=== PATIENT | male | born 1985 | race African-American/Black ===

== ENCOUNTER 2016-08-18 09:55 | Emergency (ER) | payer MEDICAID, MEDICARE ==
[~2016-08-18] VITALS: Ht 177.8 cm; Wt 75.0 kg
[2016-08-18] MEDS ORDERED: ONDANSETRON HCL 4MG/2ML VIAL IV STA (11:21)
[2016-08-18] MEDS ORDERED: SODIUM CHLORIDE 0.9% 1,000 ML IV ONE (11:21)
[2016-08-18] MEDS ORDERED: MORPHINE SULFATE 4 MG/ML CPJ (NOT FOR IM USE) IV STA (11:21)
[2016-08-18 12:17] LABS: CLARITY URINE CLEAR (CLEAR); COLOR URINE YELLOW (YELLOW); GLUCOSE URINE 2+ (NEGATIVE); KETONES URINE 2+ (NEGATIVE); LEUKOCYTE ESTERASE URINE NEGATIVE (NEGATIVE); NITRITE URINE NEGATIVE (NEGATIVE); OCCULT BLOOD URINE NEGATIVE (NEGATIVE); PH URINE 8.5 (4.5-8.0); PROTEIN URINE NEGATIVE (NEGATIVE); SPECIFIC GRAVITY URINE 1.024 (1.005-1.030)
[2016-08-18 12:24] VITALS: BP 128/64
[2016-08-18 12:26] LABS: INR 1.1; PROTHROMBIN TIME 11.7 sec
[2016-08-18 12:32] LABS: CARBON DIOXIDE 25 mEq/L (21-32); CHLORIDE 105 mEq/L (98-107)
[2016-08-18 12:33] LABS: HEMOGLOBIN. 13.6 g/dL (14.0-18.0); MEAN CORPUSCULAR HEMOGLOBIN 32.7 pg (28.0-32.0); MEAN CORPUSCULAR VOLUME 98.2 fL (80.0-94.0); MEAN PLATELET VOLUME 9.2 fl (7.4-10.4); PLATELET 187 x1000/uL (130-400); RED BLOOD CELL COUNT 4.17 mill/uL (4.7-6.1); RED CELL DISTRIBUTION WIDTH 12.9 % (11.6-14.6)
[2016-08-18 13:21] LABS: PLATELET ESTIMATE NORMAL
[2016-08-18] MEDS ORDERED: POTASSIUM CHLORIDE 20MEQ TABLET SR PO ONE (13:45)
[2016-08-18] MEDS ORDERED: ONDANSETRON 4MG ODT PO ONE (13:45)
== END 2016-08-18 14:23 | disposition home or self-care (01) ==
LOC: ER 10:15
DX: A08.4 Viral intestinal infection, unspecified (principal)
CPT/HCPCS: 36415; 80053; 81001; 83690; 85025; 85610; 96361; 96374; 96375; 99285; J2270; J2405; Q0162; J7030

== ENCOUNTER 2017-10-22 02:54 | Emergency (ER) | payer MEDICAID, MEDICARE ==
[~2017-10-22] VITALS: Ht 175.3 cm; Wt 68.6 kg
[2017-10-22] MEDS ORDERED: KETOROLAC 60MG/2ML VIAL IM STA (07:11)
[2017-10-22] MEDS ORDERED: BACITRACIN ZINC OINT UDPKT TOP ONE (07:15)
[2017-10-22] MEDS ORDERED: MORPHINE SULFATE 10 MG/ML CPJ IM ONE (09:45)
[2017-10-22 09:50] VITALS: BP 126/85
== END 2017-10-22 10:43 | disposition home or self-care (01) ==
LOC: ER 02:54
DX: S62.292A Other fracture of first metacarpal bone, left hand, initial encounter for closed fracture (principal); S90.31XA Contusion of right foot, initial encounter; F12.10 Cannabis abuse, uncomplicated; S49.81XA Other specified injuries of right shoulder and upper arm, initial encounter; Y08.89XA Assault by other specified means, initial encounter; Y93.89 Activity, other specified; Y92.89 Other specified places as the place of occurrence of the external cause; Y99.8 Other external cause status
CPT/HCPCS: 26605; 73030; 73110; 73130; 73630; 96372; 99284; J1885; J2270; Z7610

== ENCOUNTER 2018-11-10 14:24 | Emergency (ER) | payer MEDICAID ==
[~2018-11-10] VITALS: Ht 175.3 cm; Wt 77.0 kg
[2018-11-10 16:29] LABS: BASOPHILS % 0.5 % (0.0-2.0); EOSINOPHILS % 6.9 % (0.0-5.0); HEMATOCRIT. 36.5 % (42.0-52.0); HEMOGLOBIN. 12.5 g/dL (14.0-18.0); MEAN CORPUSCULAR HEMOGLOBIN 34.9 pg (28.0-32.0); MEAN PLATELET VOLUME 7.9 fl (7.4-10.4); MONOCYTES % 8.3 % (2.0-8.0); NEUTROPHILS % 47.3 % (40.0-76.0); PLATELET 167 x1000/uL (130-400); RED BLOOD CELL COUNT 3.58 mill/uL (4.7-6.1); RED CELL DISTRIBUTION WIDTH 13.4 % (11.6-14.6)
[2018-11-10 16:35] LABS: CHLORIDE 111 mEq/L (98-107)
[2018-11-10 16:40] LABS: ETHANOL BLOOD < 10 mg/dL
[2018-11-10 16:57] LABS: CLARITY URINE CLEAR (CLEAR); COLOR URINE YELLOW (YELLOW); KETONES URINE NEGATIVE (NEGATIVE); LEUKOCYTE ESTERASE URINE NEGATIVE (NEGATIVE); NITRITE URINE NEGATIVE (NEGATIVE); OCCULT BLOOD URINE NEGATIVE (NEGATIVE); PROTEIN URINE NEGATIVE (NEGATIVE); SPECIFIC GRAVITY URINE 1.012 (1.005-1.030)
[2018-11-10 17:05] LABS: METHADONE URINE SCREEN NEGATIVE (NEGATIVE); OPIATES URINE SCREEN NEGATIVE (NEGATIVE)
[2018-11-10 17:06] LABS: *AMPHETAMINES SCREEN URINE NEGATIVE (NEGATIVE); *BARBITURATES SCREEN URINE NEGATIVE (NEGATIVE); *BENZODIAZEPINES SCREEN URINE NEGATIVE (NEGATIVE); *COCAINE SCREEN URINE NEGATIVE (NEGATIVE); CANNABINOID URINE SCREEN PRESUMTIVE POSITIVE (NEGATIVE); PHENCYCLIDINE URINE SCREEN NEGATIVE (NEGATIVE)
[2018-11-11 11:25] VITALS: BP 125/73
== END 2018-11-11 15:47 | disposition home or self-care (01) ==
LOC: ER 14:24
DX: F31.9 Bipolar disorder, unspecified (principal); F20.9 Schizophrenia, unspecified; F12.10 Cannabis abuse, uncomplicated; F17.200 Nicotine dependence, unspecified, uncomplicated
CPT/HCPCS: 36415; 80305; 80307; 80320; 80329; 81003; 93005; 99284; G0480